=== PATIENT | female | born 1935 | race Caucasian/White ===

== ENCOUNTER → 2016-10-24 | Outpatient (CLI) | payer OTHER, BC ==
[~2016-10-24] MED LIST: ACET1TAB84 PO; ALBUAER2 INH; ALL100 PO; ALLO100T PO; AMLO5TAB2 PO; ASCO10003 PO; ATEN50TA8 PO; ATOR-24 PO; ATV/1 PO; BUDE1SUS8 NAE; BUDESUS; CHOL100027 PO; DENO60SO SQ; DOCU-94 PO; ESTCR PV; FEXO1TAB49 PO; FLUO0.05 TOP; FLUO5CRE TOP; FRS/40 PO; GABA-113 PO; HYDR-5688 PO; HYDR25SU20 PR; JUICE PLUS PO; LDXCR30 TOP; NF656 TD; NTRGSL/4 UT; OXYC-643 PO; POLY1POW PO; POLY335019 PO; SENN1TAB80 PO; SENNTAB23; TRAM-10 PO; TRIA0.1C20 TOP; TRMCR130WC TOP; VENL75CA73 PO; VNTHFA/IN INH; ZNTT/150 PO
--- NOTE | 2016-10-27 15:15 | MAMMOGRAPHY REPORT ---
BILATERAL DIGITAL SCREENING MAMMOGRAM WITH CAD: 10/24/2016 CLINICAL HISTORY: Routine screening. Patient has no complaints. TECHNIQUE: Current study was also evaluated with a Computer Aided Detection (CAD) system. Bilatera l CC and MLO views were obtained. COMPARISON: Comparison is made to exams dated: 10/22/2015 mammogram, 10/19/2013 mammogram, 10/20/2014 m ammogram, 10/18/2012 mammogram, 10/16/2011 mammogram, and 10/01/2010 mammogram - [facility] nter. BREAST COMPOSITION: The tissue of both breasts is almost entirely fatty. FINDINGS: There is an oval partially circumscribed and partially obscured 16 mm mass seen within th e left lateral breast at approximately 3:00 posteriorly, for which spot compression tomosynthesis vi ews and possible breast ultrasound are recommended for further evaluation. Additionally, there is a small 4 mm nodular asymmetry seen within the right lateral anterior breast on the cc view, for whic h spot compression tomosynthesis views and possible breast ultrasound is recommended for further hazel luation. The remainder of both breasts are stable compared to prior exams, without suspicious masses, calcifi cations, or areas of architectural distortion noted. Bilateral benign calcifications are not signif icantly changed. IMPRESSION: ACR BI-RADS CATEGORY 0: INCOMPLETE EVALUATION: NEED ADDITIONAL IMAGING EVALUATION Left breast mass and right breast asymmetry, for which additional imaging evaluation is recommended. The patient will be called to schedule an appointment. Approximately 10% of breast cancers are not detected with mammography. A negative mammographic repor t should not delay biopsy if a clinically suggestive mass is present. Julienne Jennings M.D. ah/:10/25/2016 12:25:47 Press Operator [employer]: Imelda CASTELLANOS(Frankie)(M), [facility] letter sent: Addl Imaging 0 BI-RADS Code: ACR BI-RADS Category 0: Incomplete Evaluation: Need Additional Imaging Evaluation
== END | disposition home or self-care (01) ==
LOC: C.MAMM 12:58
PROVIDERS: ATTEND Obstetrics & Gynecology
DX: Z12.31 Encounter for screening mammogram for malignant neoplasm of breast (principal); N63 Unspecified lump in breast; N64.89 Other specified disorders of breast

== ENCOUNTER → 2016-11-05 | Outpatient (CLI) | payer OTHER, BC ==
--- NOTE | 2016-11-05 17:10 | MAMMOGRAPHY REPORT ---
BILATERAL DIGITAL DIAGNOSTIC MAMMOGRAM TOMOSYNTHESIS AND TARGETED RIGHT ULTRASOUND: 11/05/2016 CLINICAL HISTORY: 81-year-old woman called back from screening mammography for a newly visualized ma ss in the far posterior, slightly lateral left breast and for a nodular asymmetry in the lateral ant erior right breast. TECHNIQUE: Spot compression to do digital and tomosynthesis images of each breast were obtained. F ull field left CC and MLO 2-D views were also obtained after placement of circular mole markers on t he inferior breast. COMPARISON: Comparison is made to exams dated: 10/24/2016 mammogram, 10/22/2015 mammogram, 10/20/2014 mammogram, 10/19/2013 mammogram, 10/18/2012 mammogram, and 10/16/2011 mammogram - [facility] nter. BREAST COMPOSITION: There are scattered areas of fibroglandular density in both breasts. FINDINGS: There is a 2.1 mm rounded circumscribed mass in the lateral anterior right breast on the CC view, which may correlate with the asymmetry seen on screening mammography. There are benign violeta earing calcifications scattered in the right breast. No suspicious spiculated or irregular mass, ar chitectural distortion or suspicious calcification or further evaluation with ultrasound was perform ed. On visual inspection of the inferior left breast there are 2 skin moles. These were marked with cir cular mole markers and repeat left CC and MLO views were performed. One of the mole marker aligns w ith the mammographic mass in question, confirming dermal origin and benignity. Targeted ultrasound was performed in the lateral right breast. In the 8:00 axis, 3 cm from the nipp le, there is an oval thin elongated nearly anechoic mass measuring 2.4 x 2.8 mm, which could represe nt focal duct ectasia or a small cyst. No other suspicious solid or cystic mass is identified. IMPRESSION: ACR-BI-RADS CATEGORY 3: PROBABLY BENIGN, TARGETED ULTRASOUND ACR-BI-RADS CATEGORY 3: ND OBABLY BENIGN 1. The mass in the lower outer far posterior left breast correlates with a benign skin mole. No fu rther workup is needed at this time. 2. The nodular asymmetry in the lateral anterior right breast could possibly correlate with a small benign cyst or focal duct ectasia seen on ultrasound. However, given the small size mammographical ly and lack of definitive mammographicsonographic correlation, a short interval follow-up right jeffrey mogram including tomosynthesis images and possible repeat ultrasound is recommended to ensure stabil ity in 6 months. These results and recommendations were discussed with the patient at the time of the exam. Approximately 10% of breast cancers are not detected with mammography. A negative mammographic repor t should not delay biopsy if a clinically suggestive mass is present. Ying Gamez M.D. ay/:11/05/2016 14:39:45 Operations Manager Assistant: Imelda CASTELLANOS(R)(M), [facility] letter sent: Follow Up Recommended 3 BI-RADS Code: ACR-BI-RADS Category 3: Probably Benign Ultrasound BI-RADS: ACR-BI-RADS Category 3: P robably Benign
== END | disposition home or self-care (01) ==
LOC: C.MAMM 13:23
PROVIDERS: ATTEND Obstetrics & Gynecology
DX: R92.8 Other abnormal and inconclusive findings on diagnostic imaging of breast (principal); D22.9 Melanocytic nevi, unspecified

== ENCOUNTER 2017-01-09 10:45 | Emergency (ER) | payer OTHER, BC ==
[~2017-01-09] VITALS: Ht 154.9 cm; Wt 123.0 kg
[~2017-01-09 10:45] MED LIST changes: -ALLO100T PO; -ASCO10003 PO; -BUDE1SUS8 NAE; -CHOL100027 PO; -DOCU-94 PO; -GABA-113 PO; -HYDR-5688 PO; -JUICE PLUS PO; -LDXCR30 TOP; -NF656 TD; -OXYC-643 PO; -POLY335019 PO; -SENN1TAB80 PO; +SENN8.6T13 PO; -TRMCR130WC TOP; -VNTHFA/IN INH
[2017-01-09 10:47] VITALS: TEMP 36.8; Ht 154.9 cm; Wt 123.0 kg
[2017-01-09] MEDS ORDERED: ASCO10003 PO (11:12)
[2017-01-09] MEDS ORDERED: CHOL100027 PO (11:12)
[2017-01-09] MEDS ORDERED: JUICE PLUS PO (11:12)
[2017-01-09] MEDS ORDERED: LDXCR30 TOP (11:19)
[2017-01-09] MEDS ORDERED: ALLO100T PO (11:19)
[2017-01-09] MEDS ORDERED: TRMCR130WC TOP (11:19)
[2017-01-09] MEDS ORDERED: ESTCR PV (11:19)
[2017-01-09] MEDS ORDERED: BUDE1SUS8 NAE (11:19)
[2017-01-09] MEDS ORDERED: VNTHFA/IN INH (11:19)
[2017-01-09] MEDS ORDERED: OXYCODONE HCL IR 5 MG TAB (IMMEDIATE RELEASE) PO STA (11:27)
--- NOTE | 2017-01-09 11:59 | DIAGNOSTIC IMAGING REPORT ---
LUMBAR SPINE CT CT DOSE: HISTORY: Pain Low back pain, no trauma TECHNIQUE: Multiaxial CT images of the lumbar spine were performed and reformatted in the sagittal and coronal plane without the use of contrast. COMPARISON: None. FINDINGS: Significant degenerative disc change throughout the entire lumbar region. Vacuum disc are noted throughout. Minimal grade 1 anterolisthesis of L4 and L5 with a maximum anterolisthesis of 4 mm. Vertebral body stature is normal. Mild disc bulges at all levels. Probable multifactorial moderate narrowing of spinal canal at L2-L3. Mild disc bulge L3-L4. Moderate multifactorial to significant multifactorial narrowing of the spinal canal at L4-L5. Mild disc bulge L5-S1. Degenerative changes of posterior elements throughout. IMPRESSION: 1. Significant degenerative disc disease throughout the entire lumbar region. 2. Vacuum discs at virtually all levels. 3. Grade 1 anterolisthesis of L4 on L5. 4. Significant multifactorial narrowing of the spinal canal at L4-L5, with less prominent findings seen at all additional levels. Electronically signed by: Jules Bass M.D. 01/09/2017 11:57 AM Dictated Date/Time: 01/09/2017 11:55 AM
--- NOTE | 2017-01-09 12:05 | DIAGNOSTIC IMAGING REPORT ---
PELVIS CT CT DOSE: 3994.50 mGy.cm HISTORY: Pelvic pain, no trauma TECHNIQUE: Multiaxial CT images of the pelvis were performed and reformatted in the sagittal and coronal plane without the use of contrast. COMPARISON: Abdomen and pelvis CT 08/24/2015. FINDINGS: No fracture or dislocation within the pelvis or hips. The sacrum is intact. Mild to moderate osteoarthritis within the bilateral hips and bilateral sacroiliac joints. Hysterectomy. The bladder is unremarkable. No pelvic free fluid. No pelvic hematoma. No hip effusions. IMPRESSION: 1. No fracture or dislocation within the pelvis or hips. 2. Mild osteoarthritis within the bilateral hips and sacroiliac joints. Electronically signed by: Tristan Orozco M.D. 01/09/2017 12:03 PM Dictated Date/Time: 01/09/2017 11:59 AM
[2017-01-09 12:23] LABS: BASO % 0.2 %; BASO ABS # 0.02 K/uL (0-0.2); COMPLETE YES; EOS % 2.9 %; HEMATOCRIT 38.7 % (37-47); IG% 0.5 %; LYMPH % 10.6 %; LYMPH ABS # 1.18 K/uL (1.2-3.4); MEAN CELL VOLUME 83.4 fL (80-100); MEAN CORPUSCULAR HGB CONC 33.6 g/dl (32-36); MONO % 6.5 %; NEUT % 79.3 %; PLATELET COUNT 386 K/uL (130-400); RED BLOOD COUNT 4.64 M/uL (4.2-5.4); WHITE BLOOD COUNT 11.15 K/uL (4.8-10.8)
[2017-01-09 12:40] LABS: BUN/CREATININE RATIO 18.1 (10-20); CALCIUM 9.8 mg/dl (8.5-10.1); CREATININE 1.5 mg/dl (0.60-1.20); POTASSIUM 4.1 mmol/L (3.5-5.1)
[2017-01-09 12:42] LABS: ALB/GLOB RATIO 0.9 (0.9-2)
[2017-01-09 12:49] LABS: URINE APPEARANCE CLEAR (CLEAR); URINE BILIRUBIN NEG (NEG); URINE COLOR YELLOW; URINE NITRITE NEG (NEG); URINE PH 6.5 (4.5-7.5); UROBILINOGEN NEG (NEG); ZZUR CULT IF INDIC CLEAN CATCH NO
[2017-01-09 12:55] LABS: MANUAL MICROSCOPIC REQUIRED? NO; REVIEW REQ? NO
[2017-01-09 13:08] VITALS: BP 156/78; PULSE 66; O2SAT 96
--- NOTE | 2017-01-09 13:43 | EMERGENCY ROOM VISIT NOTE ---
ED Visit Note First contact with patient: 10:52 81-year-old female with right-sided back and hip pain was fully evaluated by Monico Ritchie PA-C. Please see his note. I also independently evaluated the patient.
[2017-01-09] MEDS ORDERED: HYDROCODONE/ACETAMOPHEN 5/325MG TAB PO STA (13:46)
[2017-01-09] MEDS ORDERED: DOCU-94 PO (13:49)
[2017-01-09] MEDS ORDERED: HYDR-5688 PO (13:49)
--- NOTE | 2017-01-09 13:53 | EMERGENCY ROOM VISIT NOTE ---
History First contact with patient: 10:52 Chief Complaint: BACK PAIN Stated Complaint: BACK PAIN History of Present Illness The patient is a 81 year old female who presents to the Emergency Room via private vehicle accompanied by female with complaints of "back pain". The patient states that she wears a back brace occasionally, but recently operated vacuum approximately 2 days ago without the brace. She states that even before vacuuming she had pain in the low back. She states that it is in the mid low back region in the buttocks region. She has also noted swelling in the legs, and notes that she has gained weight over the past month. She states that it has been poor since Thursday. She notes that she typically ambulates with a cane. There has been no incontinence. She has tried tramadol and Tylenol without relief. She does have a history of back pain. She has difficulty bending over secondary to pain. She has a history of stage III kidney disease, and retains fluid. There is been no abdominal pain, fever. She also feels slightly nauseous secondary to the pain. She lives alone. Review of Systems A complete 10-point Review of Systems was discussed with the patient, with pertinent positives and negatives listed in the History of Present Illness. All remaining Review of Systems questions can be considered negative unless otherwise specified. Past Medical/Surgical History Medical Problems: (1) CKD (chronic kidney disease), stage III (2) Depression (3) DJD (degenerative joint disease), lumbar (4) Dyslipidemia (5) GERD (gastroesophageal reflux disease) (6) Gout (7) Hyperlipidemia (8) Hyperplastic polyp of intestine (9) Hypertension (10) IBS (irritable bowel syndrome) (11) Obesity, morbid, BMI 50 or higher (12) Osteoarthritis (13) Osteoporosis (14) Vitamin D deficiency Surgical Problems: (1) H/O oophorectomy (2) H/o spinal injection (3) History of hysterectomy (4) S/P cataract surgery (5) S/P lumpectomy, left breast (6) S/P parathyroidectomy Family History FH: heart disease FHx: cancer Hypertension Kidney disease Kidney stones Social History Smoking Status: Never Smoker Alcohol Use: none Drug Use: none Housing Status: lives alone Current/Historical Medications Scheduled Albuterol Hfa (Ventolin Hfa), 2-4 PUFFS INH Q6H Allopurinol (Zyloprim), 200 MG PO QAM Amlodipine Besylate (Norvasc), 5 MG PO QPM Ascorbic Acid (Vitamin C), 1 TAB PO DAILY Atenolol (Tenormin), 50 MG PO QAM Cholecalciferol (Vitamin D 1000 Unit), 1,000 INTER.UNIT PO DAILY Denosumab (Prolia), 60 MG SQ [id number] Docusate Sodium (Colace), 1 CAP PO BID Estradiol Vaginal (Estrace), 1 GM PV QAM Fexofenadine Hcl (Devora Allergy), 180 MG PO QAM Furosemide (Lasix), 40 MG PO DAILY Nitroglycerin (Nitrostat), 0.4 MG UT PRN Ranitidine (Zantac), 150 MG PO BID Venlafaxine Hcl (Venlafaxine Extended Rel), 75 MG PO QAM [Juice Plus], 1 CAP PO DAILY Scheduled PRN Acetaminophen (Tylenol Arthritis Ext Rel), 1,300 MG PO Q8H PRN for Pain Budesonide (Nasal) (Rhinocort Allergy), 1 SPRAY CESAR QAM PRN for ALLERGIES Fluocinonide (Lidex 0.05% Cream), 1 APPLN TOP DAILY PRN for Affected Skin Folds Hydrocodone/Acetaminophen 5MG/325MG (Highland 5MG/325MG), 1-2 TABLET PO Q6 PRN for Pain Hydrocortisone Acetate (Rectal (Anusol-Hc), 25 MG WA BID PRN for Hemorrhoids Lorazepam (Ativan), 1 MG PO BID PRN for RN Sennosides (Senna Lax), 2 TABS PO HS PRN for PRN Tramadol (Ultram), 50 MG PO Q6H PRN for Pain Triamcinolone Acet (Aristocort 0.1%), 1 APPLN TOP BID PRN for Affected Skin Folds Allergies Coded Allergies: Clarithromycin (Verified Allergy, Unknown, HIVES, 01/09/17) Dust Mite Extract (Verified Allergy, Unknown, SOB,SNEEZING, 01/09/17) NSAIDs (Verified Allergy, Unknown, NOT TO TAKE DUE TO KIDNEY FUNCTION, ) Penicillins (Verified Allergy, Unknown, HIVES, 01/09/17) Physical Exam Vital Signs Date Time Temp Pulse Resp B/P (MAP) Pulse Ox O2 Delivery O2 Flow Rate FiO2 01/09/17 13:08 66 18 156/78 96 Room Air 01/09/17 10:47 36.8 89 17 152/75 94 Room Air Physical Exam VITAL SIGNS - Vital signs and nursing notes were reviewed. Afebrile, hypertensive at 152/75, non-tachycardic and is saturating well on room air 94%. GENERAL -81-year-old female appearing her stated age who is in no acute distress. Communicates well with provider and answers questions appropriately. SKIN - Without rashes. No petechial rashes. The skin overlying the spine is unremarkable. HEAD - NC/AT. EYES - PERRL with EOMI bilaterally. Sclera anicteric. Palpebral conjunctiva pink and moist with no injection noted. EARS - No deformities of external structures noted on gross examination bilaterally. NOSE - Midline and without cyanosis. No epistaxis or purulent drainage noted. MOUTH/OROPHARYNX - Without perioral cyanosis. LUNGS - Chest wall symmetric without accessory muscle use, intercostals retractions, or central cyanosis. Normal vesicular breath sounds CTA B/L. No wheezes, rales, or rhonchi appreciated. CARDIAC - RRR with S1/S2. No murmur, rubs, or gallops appreciated. MUSCULOSKELETAL: There is tenderness to palpation overlying the inferior spinous processes as well as the pelvis posterior region. ABDOMEN - Abdominal contour without pulsations or visible masses. BS normoactive all four quadrants. No tenderness, palpable masses, hepatosplenomegaly, or ascites noted. EXTREMITIES - there is bilateral pedal edema. She is neurovascularly intact in the extremity. Medical Decision & Procedures ER Provider Diagnostic Interpretation: LUMBAR SPINE CT CT DOSE: HISTORY: Pain Low back pain, no trauma TECHNIQUE: Multiaxial CT images of the lumbar spine were performed and reformatted in the sagittal and coronal plane without the use of contrast. COMPARISON: None. FINDINGS: Significant degenerative disc change throughout the entire lumbar region. Vacuum disc are noted throughout. Minimal grade 1 anterolisthesis of L4 and L5 with a maximum anterolisthesis of 4 mm. Vertebral body stature is normal. Mild disc bulges at all levels. Probable multifactorial moderate narrowing of spinal canal at L2-L3. Mild disc bulge L3-L4. Moderate multifactorial to significant multifactorial narrowing of the spinal canal at L4-L5. Mild disc bulge L5-S1. Degenerative changes of posterior elements throughout. IMPRESSION: 1. Significant degenerative disc disease throughout the entire lumbar region. 2. Vacuum discs at virtually all levels. 3. Grade 1 anterolisthesis of L4 on L5. 4. Significant multifactorial narrowing of the spinal canal at L4-L5, with less prominent findings seen at all additional levels. Electronically signed by: Jules Bass M.D. 01/09/2017 11:57 AM Dictated Date/Time: 01/09/2017 11:[address] DOSE: 3994.50 mGy.cm HISTORY: Pelvic pain, no trauma TECHNIQUE: Multiaxial CT images of the pelvis were performed and reformatted in the sagittal and coronal plane without the use of contrast. COMPARISON: Abdomen and pelvis CT 08/24/2015. FINDINGS: No fracture or dislocation within the pelvis or hips. The sacrum is intact. Mild to moderate osteoarthritis within the bilateral hips and bilateral sacroiliac joints. Hysterectomy. The bladder is unremarkable. No pelvic free fluid. No pelvic hematoma. No hip effusions. IMPRESSION: 1. No fracture or dislocation within the pelvis or hips. 2. Mild osteoarthritis within the bilateral hips and sacroiliac joints. Electronically signed by: Tristan Orozco M.D. 01/09/2017 12:03 PM Dictated Date/Time: 01/09/2017 11:59 AM Laboratory Results 01/09/17 12:00 Red Blood Count 4.64, Mean Corpuscular Volume 83.4, Mean Corpuscular Hemoglobin 28.0, Mean Corpuscular Hemoglobin Concent 33.6, Mean Platelet Volume 11.0, Neutrophils (%) (Auto) 79.3, Lymphocytes (%) (Auto) 10.6, Monocytes (%) (Auto) 6.5, Eosinophils (%) (Auto) 2.9, Basophils (%) (Auto) 0.2, Neutrophils # (Auto) 8.85, Lymphocytes # (Auto) 1.18, Monocytes # (Auto) 0.72, Eosinophils # (Auto) 0.32, Basophils # (Auto) 0.02 01/09/17 12:00 Test 01/09/17 12:00 01/09/17 12:35 White Blood Count 11.15 K/uL (4.8-10.8) Red Blood Count 4.64 M/uL (4.2-5.4) Hemoglobin 13.0 g/dL (12.0-16.0) Hematocrit 38.7 % (37-47) Mean Corpuscular Volume 83.4 fL (80-100) Mean Corpuscular Hemoglobin 28.0 pg (25-34) Mean Corpuscular Hemoglobin Concent 33.6 g/dl (32-36) Platelet Count 386 K/uL (130-400) Mean Platelet Volume 11.0 fL (7.4-10.4) Neutrophils (%) (Auto) 79.3 % Lymphocytes (%) (Auto) 10.6 % Monocytes (%) (Auto) 6.5 % Eosinophils (%) (Auto) 2.9 % Basophils (%) (Auto) 0.2 % Neutrophils # (Auto) 8.85 K/uL (1.4-6.5) Lymphocytes # (Auto) 1.18 K/uL (1.2-3.4) Monocytes # (Auto) 0.72 K/uL (0.11-0.59) Eosinophils # (Auto) 0.32 K/uL (0-0.5) Basophils # (Auto) 0.02 K/uL (0-0.2) RDW Standard Deviation 51.8 fL (36.4-46.3) RDW Coefficient of Variation 17.5 % (11.5-14.5) Immature Granulocyte % (Auto) 0.5 % Immature Granulocyte # (Auto) 0.06 K/uL (0.00-0.02) Anion Gap 9.0 mmol/L (3-11) Est Creatinine Clear Calc Drug Dose 37.4 ml/min Estimated GFR () 38.0 Estimated GFR (Non- 32.8 BUN/Creatinine Ratio 18.1 (10-20) Calcium Level 9.8 mg/dl (8.5-10.1) Total Bilirubin 0.6 mg/dl (0.2-1) Aspartate Amino Transf (AST/SGOT) 19 U/L (15-37) Alanine Aminotransferase (ALT/SGPT) 20 U/L (12-78) Alkaline Phosphatase 84 U/L (45-117) Total Protein 7.4 gm/dl (6.4-8.2) Albumin 3.5 gm/dl (3.4-5.0) Globulin 3.9 gm/dl (2.5-4.0) Albumin/Globulin Ratio 0.9 (0.9-2) Urine Color YELLOW Urine Appearance CLEAR (CLEAR) Urine pH 6.5 (4.5-7.5) Urine Specific [place] 1.010 (1.000-1.030) Urine Protein NEG (NEG) Urine Glucose (UA) NEG (NEG) Urine Ketones NEG (NEG) Urine Occult Blood NEG (NEG) Urine Nitrite NEG (NEG) Urine Bilirubin NEG (NEG) Urine Urobilinogen NEG (NEG) Urine Leukocyte Esterase NEG (NEG) Medications Administered Medications (Trade) Dose Ordered Sig/Sergio Route Start Time Stop Time Status Last Admin Dose Admin Oxycodone HCl (Roxicodone Immediate Rel Tab) 5 mg NOW STAT PO 01/09/17 11:27 01/09/17 11:28 DC 01/09/17 11:46 5 MG Acetaminophen/ Hydrocodone Bitart (Highland 5/325 Tab) 1 tab NOW STAT PO 01/09/17 13:46 01/09/17 13:47 DC 01/09/17 13:57 1 TAB Medical Decision Patient was seen and evaluated as above. After obtaining a thorough history and physical examination IV access was initiated and the above workup was performed. Patient presents to us today with low back pain. She has also had a recent weight gain over the past month. Patient does have a history of chronic kidney disease, and is on what she describes as a water pill. I suspect that she may acute exacerbation of this, and unfortunately the patient this time in my opinion is likely experiencing low back pain secondary to the amount of weight that is supported on her spine and do not suspect any acute process. Blood work was obtained to help rule out emergent process. CBC revealed slight leukocytosis, no anemia noted. Creatinine and BUN are elevated which are similar to previous. She is to follow up regarding this. CT scans were negative for fracture. Severe degenerative changes noted. The patient was given OxyIR here for pain and one Highland tablet. She does feel stable for discharge. She'll be given a short term supply of the Highland. She was also seen and evaluated by my attending. She is to follow-up with her family doctor for further evaluation and management of her symptoms today. She was educated upon worrisome symptoms in which to return, had questions prior to discharge, and was discharged home in good condition. In evaluation treatment of this patient following differential diagnoses were entertained: Pyelonephritis, sepsis, acute exacerbation of chronic low back pain , CHF exacerbation, morbid obesity, among others. Impression Primary Impression: Back pain Departure Information Dispostion Home / Self-Care Condition GOOD Prescriptions Docusate Sodium (COLACE) 100 Mg Cap 1 CAP PO BID for 7 Days, #14 CAP Prov: Monico Ritchie PA-C 01/09/17 Hydrocodone/Acetaminophen 5MG/325MG (Highland 5MG/325MG) Tab 1-2 TABLET PO Q6 Y for Pain, #21 TAB For Initial Treatment Prov: Monico Ritchie PA-C 01/09/17 Referrals Ervin Steel D.O. (PCP) Patient Instructions My [facility] Additional Instructions You have been treated in the Emergency Department for Back Pain. You have received pain medicine in the emergency department which impairs your ability to operate a vehicle. It is illegal for you to drive after receiving these medicines. You have been prescribed NORCO to be used for pain control. This is a narcotic medication. You cannot drive or consume alcohol while on this medicine. This medicine should only be used for pain that cannot be controlled with over-the- counter pain medicines. For pain control, you can use the following [id number] medicines (if >12 yo): - Regular strength (325mg/tab) Tylenol (acetaminophen) 2 tabs every 4-6 hours as needed. Do not exceed 12 tablets in a 24 hour period. Avoid taking more than 3 grams (3000 mg) of Tylenol per day. This includes any other sources of acetaminophen you may take on a regular basis. Please do not take Highland with Tylenol. - Regular strength (200 mg/tab) Advil (ibuprofen) 1-2 tabs every 4-6 hours as needed. Do not exceed a dose of 3200 mg per day. If this is an acute injury, ice can be applied to the area of pain for the first 3 days to help decrease pain and inflammation. After the first 3 days, a heating pad can be used over the area for continued soothing relief. You should schedule a follow-up appointment in 2-3 days with your Primary Care Provider for further evaluation and treatment of your back pain. Please also follow-up regarding your kidney function. Return to the Emergency Department if your current symptoms worsen despite treatment course outlined above, or if you develop any of the following symptoms : intractable pain despite aforementioned treatment course, loss of control of your bowel or bladder, numbness or tingling in your groin, or development of a fever. Problem Qualifiers Primary Impression: Back pain Back pain location: low back pain
[2017-02-09] MEDS ORDERED: GABA-113 PO (10:31)
[2017-02-09] MEDS ORDERED: DOCU-94 PO (10:31)
[2017-02-09] MEDS ORDERED: POLY335019 PO (10:31)
== END 2017-01-09 14:07 | disposition home or self-care (01) ==
LOC: C.EDB 10:46 → C.EDD 14:07
DX: M54.9 Dorsalgia, unspecified (principal); N18.3 Chronic kidney disease, stage 3 (moderate); M47.16 Other spondylosis with myelopathy, lumbar region; E78.5 Hyperlipidemia, unspecified; K21.9 Gastro-esophageal reflux disease without esophagitis; M10.9 Gout, unspecified; I10 Essential (primary) hypertension; K58.9 Irritable bowel syndrome, unspecified; E66.01 Morbid (severe) obesity due to excess calories; M19.90 Unspecified osteoarthritis, unspecified site; E55.9 Vitamin D deficiency, unspecified; Z82.49 Family history of ischemic heart disease and other diseases of the circulatory system

== ENCOUNTER 2017-01-12 14:19 | Emergency (ER) | payer OTHER, BC ==
[~2017-01-12 14:19] MED LIST changes: -ALBUAER2 INH; -ALL100 PO; +ALLO100T PO; +ASCO10003 PO; -ATOR-24 PO; +BUDE1SUS8 NAE; -BUDESUS; +CHOL100027 PO; +DOCU-94 PO; -FLUO0.05 TOP; -FLUO5CRE TOP; +HYDR-5688 PO; +JUICE PLUS PO; +LDXCR30 TOP; -POLY1POW PO; -SENNTAB23; -TRIA0.1C20 TOP; +TRMCR130WC TOP; +VNTHFA/IN INH
[2017-01-12 14:42] VITALS: Ht 152.4 cm
[2017-01-12] MEDS ORDERED: LIDODERM (LIDOCAINE) PATCH 5% TD STA (16:19)
[2017-01-12] MEDS ORDERED: ACETAMINOPHEN 325 MG TAB PO STA (16:19)
--- NOTE | 2017-01-12 16:28 | EMERGENCY ROOM VISIT NOTE ---
History Report prepared by Brandon: Deborah Butcher Under the Supervision of: Essence ParkO. First contact with patient: 16:01 Chief Complaint: BACK PAIN Stated Complaint: BACK PAIN History of Present Illness The patient is a 81 year old female who presents to the Emergency Room with complaints of worsening back pain for the past week and a half. The patient has had chronic back pain for the past two years after a fall. For the past week and a half her chronic back pain has gotten much worse. Her pain is located in her mid back and radiates down into her buttocks. She rates her pain as a 10/10 in severity. Walking exacerbates her pain. The patient states that her legs feel swollen and she feels generally "puffy" all over. She notes burning with urination. She has a history of UTIs and states that these symptoms feels similar to her previous UTIs. She also reports chills, diaphoresis, and cough. She has been constipated, but obtained some relief with laxatives. The patient denies fevers and shortness of breath. She was in the ED three days ago for her pain. She had a CT scan of her back at that time. She was discharged with [place] and Colace and told to follow-up with her PCP in 2-3 days. The patient states that the [place] is no longer helping. Source of History: patient Onset: a week and a half Position: back Symptom Intensity: 10/10 Quality: other (radiating) Timing: worsening Modifying Factors (Worsening): other (walking) Associated Symptoms: + chills, + diaphoresis, + cough, + urinary symptoms, No fevers, No SOB Note: The patient states that her legs feel swollen and she feels generally "puffy" all over. Review of Systems See HPI for pertinent positives & negatives. A total of 10 systems reviewed and were otherwise negative. Past Medical & Surgical Medical Problems: (1) CKD (chronic kidney disease), stage III (2) Depression (3) DJD (degenerative joint disease), lumbar (4) Dyslipidemia (5) GERD (gastroesophageal reflux disease) (6) Gout (7) Hyperlipidemia (8) Hyperplastic polyp of intestine (9) Hypertension (10) IBS (irritable bowel syndrome) (11) Obesity, morbid, BMI 50 or higher (12) Osteoarthritis (13) Osteoporosis (14) Vitamin D deficiency Surgical Problems: (1) H/O oophorectomy (2) H/o spinal injection (3) History of hysterectomy (4) S/P cataract surgery (5) S/P lumpectomy, left breast (6) S/P parathyroidectomy Family History FH: heart disease FHx: cancer Hypertension Kidney disease Kidney stones Social History Smoking Status: Never Smoker Smokeless Tobacco Use: No Alcohol Use: none Drug Use: none Housing Status: lives alone Occupation Status: unemployed Current/Historical Medications Scheduled Albuterol Hfa (Ventolin Hfa), 2-4 PUFFS INH Q6H Allopurinol (Zyloprim), 200 MG PO QAM Amlodipine Besylate (Norvasc), 5 MG PO QPM Ascorbic Acid (Vitamin C), 1 TAB PO DAILY Atenolol (Tenormin), 50 MG PO QAM Cholecalciferol (Vitamin D 1000 Unit), 1,000 INTER.UNIT PO DAILY Denosumab (Prolia), 60 MG SQ [id number] Docusate Sodium (Colace), 1 CAP PO BID Estradiol Vaginal (Estrace), 1 GM PV QAM Fexofenadine Hcl (Devora Allergy), 180 MG PO QAM Furosemide (Lasix), 40 MG PO DAILY Lidocaine (Lidoderm Patch 5%), 1 PATCH TD DAILY Nitroglycerin (Nitrostat), 0.4 MG UT PRN Oxycodone/Acetaminophen 5MG/325MG (Oxycodone/Acetaminophen 5MG/325MG), 1 TABLET PO Q8 Ranitidine (Zantac), 150 MG PO BID Venlafaxine Hcl (Venlafaxine Extended Rel), 75 MG PO QAM [Juice Plus], 1 CAP PO DAILY Scheduled PRN Acetaminophen (Tylenol Arthritis Ext Rel), 1,300 MG PO Q8H PRN for Pain Budesonide (Nasal) (Rhinocort Allergy), 1 SPRAY CESAR QAM PRN for ALLERGIES Fluocinonide (Lidex 0.05% Cream), 1 APPLN TOP DAILY PRN for Affected Skin Folds Hydrocodone/Acetaminophen 5MG/325MG ([place] 5MG/325MG), 1-2 TABLET PO Q6 PRN for Pain Hydrocortisone Acetate (Rectal (Anusol-Hc), 25 MG HI BID PRN for Hemorrhoids Lorazepam (Ativan), 1 MG PO BID PRN for RN Sennosides (Senna Lax), 2 TABS PO HS PRN for PRN Tramadol (Ultram), 50 MG PO Q6H PRN for Pain Triamcinolone Acet (Aristocort 0.1%), 1 APPLN TOP BID PRN for Affected Skin Folds Allergies Coded Allergies: Clarithromycin (Verified Allergy, Unknown, HIVES, 01/12/17) Dust Mite Extract (Verified Allergy, Unknown, SOB,SNEEZING, 01/12/17) NSAIDs (Verified Allergy, Unknown, NOT TO TAKE DUE TO KIDNEY FUNCTION, 01/12) Penicillins (Verified Allergy, Unknown, HIVES, 01/12/17) Physical Exam Vital Signs Date Time Temp Pulse Resp B/P (MAP) Pulse Ox O2 Delivery O2 Flow Rate FiO2 01/12/17 18:27 36.7 71 18 154/69 95 01/12/17 16:50 71 18 154/69 95 Room Air 01/12/17 14:42 36.7 78 20 215/92 94 Room Air Physical Exam GENERAL: alert, well appearing, morbidly obese, no distress, non-toxic EYE EXAM: normal conjunctiva, PERRL and EOM's grossly intact OROPHARYNX: no exudate, no erythema, lips, buccal mucosa, and tongue normal and mucous membranes are moist NECK: supple, no nuchal rigidity, no adenopathy, non-tender LUNGS: Clear to auscultation. Normal chest wall mechanics HEART: no murmurs, S1 normal and S2 normal ABDOMEN: abdomen soft, non-tender, normo-active bowel sounds, no masses, no rebound or guarding. BACK: Back is symmetrical on inspection and there is no deformity, no midline tenderness, no CVA tenderness. SKIN: no rashes and no bruising UPPER EXTREMITIES: upper extremities are grossly normal. LOWER EXTREMITIES: No pitting edema. Decreased ROM bilaterally secondary to pain. NEURO EXAM: Normal sensorium Medical Decision & Procedures Laboratory Results 01/12/17 16:40 Red Blood Count 4.61, Mean Corpuscular Volume 82.0, Mean Corpuscular Hemoglobin 27.3, Mean Corpuscular Hemoglobin Concent 33.3, Mean Platelet Volume 11.4, Neutrophils (%) (Auto) 75.4, Lymphocytes (%) (Auto) 13.5, Monocytes (%) (Auto) 9.1, Eosinophils (%) (Auto) 1.4, Basophils (%) (Auto) 0.2, Neutrophils # (Auto) 8.24, Lymphocytes # (Auto) 1.48, Monocytes # (Auto) 1.00, Eosinophils # (Auto) 0.15, Basophils # (Auto) 0.02 01/12/17 16:40 Test 01/12/17 16:40 01/12/17 17:00 White Blood Count 10.93 K/uL (4.8-10.8) Red Blood Count 4.61 M/uL (4.2-5.4) Hemoglobin 12.6 g/dL (12.0-16.0) Hematocrit 37.8 % (37-47) Mean Corpuscular Volume 82.0 fL (80-100) Mean Corpuscular Hemoglobin 27.3 pg (25-34) Mean Corpuscular Hemoglobin Concent 33.3 g/dl (32-36) Platelet Count 411 K/uL (130-400) Mean Platelet Volume 11.4 fL (7.4-10.4) Neutrophils (%) (Auto) 75.4 % Lymphocytes (%) (Auto) 13.5 % Monocytes (%) (Auto) 9.1 % Eosinophils (%) (Auto) 1.4 % Basophils (%) (Auto) 0.2 % Neutrophils # (Auto) 8.24 K/uL (1.4-6.5) Lymphocytes # (Auto) 1.48 K/uL (1.2-3.4) Monocytes # (Auto) 1.00 K/uL (0.11-0.59) Eosinophils # (Auto) 0.15 K/uL (0-0.5) Basophils # (Auto) 0.02 K/uL (0-0.2) RDW Standard Deviation 49.7 fL (36.4-46.3) RDW Coefficient of Variation 16.9 % (11.5-14.5) Immature Granulocyte % (Auto) 0.4 % Immature Granulocyte # (Auto) 0.04 K/uL (0.00-0.02) Anion Gap 7.0 mmol/L (3-11) Estimated GFR () 45.2 Estimated GFR (Non- 39.0 BUN/Creatinine Ratio 11.7 (10-20) Calcium Level 9.1 mg/dl (8.5-10.1) Total Bilirubin 0.5 mg/dl (0.2-1) Aspartate Amino Transf (AST/SGOT) 23 U/L (15-37) Alanine Aminotransferase (ALT/SGPT) 20 U/L (12-78) Alkaline Phosphatase 87 U/L (45-117) Total Protein 7.1 gm/dl (6.4-8.2) Albumin 3.5 gm/dl (3.4-5.0) Globulin 3.6 gm/dl (2.5-4.0) Albumin/Globulin Ratio 1.0 (0.9-2) Chemistry Specimen Hemolysis Urine Color YELLOW Urine Appearance CLEAR (CLEAR) Urine pH 7.0 (4.5-7.5) Urine Specific [place] 1.011 (1.000-1.030) Urine Protein NEG (NEG) Urine Glucose (UA) NEG (NEG) Urine Ketones NEG (NEG) Urine Occult Blood NEG (NEG) Urine Nitrite NEG (NEG) Urine Bilirubin NEG (NEG) Urine Urobilinogen NEG (NEG) Urine Leukocyte Esterase NEG (NEG) Laboratory results per my review. Medications Administered Medications (Trade) Dose Ordered Sig/Sergio Route Start Time Stop Time Status Last Admin Dose Admin Lidocaine (Lidoderm Patch 5%) 1 patch NOW STAT TD 01/12/17 16:19 01/12/17 16:20 DC 01/12/17 16:32 1 PATCH Acetaminophen (Tylenol Tab) 650 mg NOW STAT PO 01/12/17 16:19 01/12/17 16:20 DC 01/12/17 16:32 650 MG Oxycodone/ Acetaminophen (Percocet 5-325mg Tab) 1 tab NOW STAT PO 01/12/17 17:52 01/12/17 17:53 DC 01/12/17 18:20 1 TAB ED Course 1601: The patient was evaluated in room C12B. A complete history and physical exam was performed. 1619: Acetaminophen 650 mg PO, Lidocaine 1 patch TD 1749: I reassessed the patient at this time. She is feeling better and was able to ambulate to the bathroom. I discussed the results and treatment plan with the patient. I answered all pertaining questions that she had. She expressed understanding and verbalized agreement. The patient will be discharged home. 1752: Percocet 5-325 mg 1 tab PO Medical Decision Differential diagnoses includes but is not limited to lumbar radiculopathy, muscle strain, facture, cauda equina, mass, and disc herniation. Medication Reconciliation: I attest that I have personally reviewed the patient' s current medication list. Blood pressure screening: Patient was found to have an elevated blood pressure and was referred to their primary doctor for recheck and further treatment. Review of EMR shows similar presentations over the last 2 years, MRI of her L spine last year for similar sx. Pt has previously been referred to a note specialist and pain mgmt. She reports she was "unhappy with and didn't get along with them". I encouraged her to pursue another specialist then given the extensive degenerative disease. Pt reported feeling improved after lidoderm patch and percocet. No sx to suggest cauda equina. CT 3 days ago shows extensive disease. No acute changes. Pt unhappy with pain relief from Norca and concerned about constipation. Discussed with her tx/prevention for constipation. Discussed medication side effects. Discussed concerning symptoms. Encourage close f/u with PCP. Discussed contribution of weight to her pain. No evidence or pathology. Pt reports intermittent burning but also states she has that with dryness she has experienced since becoming post menopausal. Pt verbalized understanding of bedside discussion, sx to watch/ return for, she verbalized understanding and was agreeable with plan. Impression Primary Impression: Acute exacerbation of chronic low back pain Additional Impression: Obesity, morbid, BMI 50 or higher Scribe Attestation The scribe's documentation has been prepared under my direction and personally reviewed by me in its entirety. I confirm that the note above accurately reflects all work, treatment, procedures, and medical decision making performed by me. Departure Information Dispostion Home / Self-Care Prescriptions Oxycodone/Acetaminophen 5MG/325MG (OXYCODONE/ACETAMINOPHEN 5MG/325MG) 1 Tab Tab 1 TABLET PO Q8 for Pain, #14 TAB Prov: Chandni Nuñez, DO 01/12/17 Lidocaine (Lidoderm Patch 5%) 1 Ea Tdsy 1 PATCH TD DAILY for Pain, #1 BOX Prov: Chandni Nuñez, DO 01/12/17 Referrals No Doctor, Assigned (PCP) Forms HOME CARE DOCUMENTATION FORM, IMPORTANT VISIT INFORMATION Patient Instructions My [facility] Additional Instructions Please call and follow up with your family doctor and consider follow-up with pain management or a Back Specialist also. Please avoid any heavy lifting or strenuous activity. Please monitor for constipation while you're using the stronger pain medication. Do not take the stronger pain medication and drive. You may apply the patch daily as needed also. Please avoid any anti- inflammatories due to your mild kidney dysfunction. Do not take both the hydrocodone and oxycodone at the same time. If you feel the oxycodone looks works better you may use that instead. Problem Qualifiers
[2017-01-12 17:02] LABS: BASO % 0.2 %; BASO ABS # 0.02 K/uL (0-0.2); COMPLETE YES; EOS % 1.4 %; HEMATOCRIT 37.8 % (37-47); IG% 0.4 %; LYMPH % 13.5 %; LYMPH ABS # 1.48 K/uL (1.2-3.4); MEAN CORPUSCULAR HEMOGLOBIN 27.3 pg (25-34); MEAN CORPUSCULAR HGB CONC 33.3 g/dl (32-36); MEAN PLATELET VOLUME 11.4 fL (7.4-10.4); MONO % 9.1 %; NEUT % 75.4 %; PLATELET COUNT 411 K/uL (130-400); RED BLOOD COUNT 4.61 M/uL (4.2-5.4); WHITE BLOOD COUNT 10.93 K/uL (4.8-10.8)
[2017-01-12 17:36] LABS: URINE APPEARANCE CLEAR (CLEAR); URINE BILIRUBIN NEG (NEG); URINE COLOR YELLOW; URINE NITRITE NEG (NEG); URINE SPECIFIC GRAVITY 1.011 (1.000-1.030); UROBILINOGEN NEG (NEG); ZZUR CULT IF INDIC CLEAN CATCH NO
[2017-01-12 17:39] LABS: MANUAL MICROSCOPIC REQUIRED? NO; REVIEW REQ? NO
[2017-01-12] MEDS ORDERED: OXYCODONE/ACETAMINOPHEN 5-325 TAB PO STA (17:52)
[2017-01-12 17:58] LABS: ALKALINE PHOSPHATASE 87 U/L (45-117); ALT/SGPT 20 U/L (12-78); AST/SGOT 23 U/L (15-37); BLOOD UREA NITROGEN 15 mg/dl (7-18); BUN/CREATININE RATIO 11.7 (10-20); CALCIUM 9.1 mg/dl (8.5-10.1); CARBON DIOXIDE 28 mmol/L (21-32); CHLORIDE 105 mmol/L (98-107); GLUCOSE 98 mg/dl (70-99); POTASSIUM 3.8 mmol/L (3.5-5.1); SODIUM 140 mmol/L (136-145)
[2017-01-12] MEDS ORDERED: OXYC-643 PO (17:59)
[2017-01-12] MEDS ORDERED: NF656 TD (17:59)
[2017-01-12 18:27] VITALS: BP 154/69; PULSE 71; TEMP 36.7; O2SAT 95
[2017-02-09] MEDS ORDERED: POLY335019 PO (10:31)
[2017-02-09] MEDS ORDERED: GABA-113 PO (10:31)
[2017-02-09] MEDS ORDERED: DOCU-94 PO (10:31)
== END 2017-01-12 18:29 | disposition home or self-care (01) ==
LOC: C.EDB 14:20 → C.EDC 18:29
DX: G89.29 Other chronic pain (principal); M54.6 Pain in thoracic spine; I12.9 Hypertensive chronic kidney disease with stage 1 through stage 4 chronic kidney disease, or unspecified chronic kidney disease; N18.3 Chronic kidney disease, stage 3 (moderate); M47.816 Spondylosis without myelopathy or radiculopathy, lumbar region; M10.9 Gout, unspecified; F32.9 Major depressive disorder, single episode, unspecified; K21.9 Gastro-esophageal reflux disease without esophagitis; M81.0 Age-related osteoporosis without current pathological fracture; E89.2 Postprocedural hypoparathyroidism; E55.9 Vitamin D deficiency, unspecified; Z87.440 Personal history of urinary (tract) infections; Z90.721 Acquired absence of ovaries, unilateral; Z98.890 Other specified postprocedural states; Z90.710 Acquired absence of both cervix and uterus; Z98.49 Cataract extraction status, unspecified eye; Z82.49 Family history of ischemic heart disease and other diseases of the circulatory system; Z84.1 Family history of disorders of kidney and ureter; Z79.899 Other long term (current) drug therapy

== ENCOUNTER → 2017-01-20 | Outpatient (CLI) | payer OTHER, BC ==
[~2017-01-20] MED LIST changes: +GABA-113 PO; +NF656 TD; +OXYC-643 PO; +POLY335019 PO
--- NOTE | 2017-01-20 16:28 | DIAGNOSTIC IMAGING REPORT ---
MRI OF THE LUMBAR SPINE WITHOUT CONTRAST CLINICAL HISTORY: ACUTE BILATERAL LOW BACK PAIN WITH BILATERAL SCIATICA COMPARISON STUDY: Lumbar spine MRI September 21, [address] January 09, 2017. TECHNIQUE: Utilizing a 1.5 Pat magnet and dedicated coil, multiplanar, multiecho imaging of the lumbar spine was performed without IV contrast. FINDINGS: For purposes of numbering on this exam, the L5-S1 disc space is assigned to axial image 23 of 25. 3 mm anterolisthesis of L4 and L5 is unchanged since CT of January 09, 2017. There is no intracanalicular mass or fluid collection. Conus terminates at the mid L2 level. Paravertebral soft tissues are unremarkable. Note is made of a T1 and T2 hyperintense lesion within T11 consistent with a hemangioma. There is marrow edema along the posterior aspect of the inferior endplate of L4. L1-2: There is disc bulge. The central canal is patent. There is mild narrowing of the left neural foramen. L2-3: There is disc bulge, eccentric to the left with facet arthrosis. There is mild to moderate narrowing of the central canal, lateral recesses and neural foramen. L3-4: The central canal is patent. There are facet arthrosis. The neural foramen are patent. L4-5: There is a left paracentral disc extrusion with superior subligamentous migration. A sequestered disc fragment may be present. There is moderate narrowing of the left lateral recess at this level. This is new since prior MRI. There is mild narrowing of both neural foramen. There is mild narrowing of the central canal. L5-S1: Central canal and neural foramen are patent. There is facet arthrosis. IMPRESSION: 1. Moderate-sized left paracentral disc extrusion at L4-L5 with suspected superior subligamentous migration. A sequestered disc fragment could appear similar. Resultant moderate narrowing of the left lateral recess at this level. 2. Mild to moderate central canal stenosis at L2-L3, as described above. Electronically signed by: Sam Ryan M.D. 01/20/2017 4:26 PM Dictated Date/Time: 01/20/2017 4:16 PM
== END | disposition home or self-care (01) ==
LOC: C.MRIBC 15:07
PROVIDERS: ATTEND Internal Medicine
DX: M54.41 Lumbago with sciatica, right side (principal); M54.42 Lumbago with sciatica, left side; M51.26 Other intervertebral disc displacement, lumbar region

== ENCOUNTER → 2017-08-11 | Outpatient (CLI) | payer OTHER, BC ==
[~2017-08-11] MED LIST changes: -HYDR-5688 PO; -OXYC-643 PO; +SENN1TAB80 PO; -SENN8.6T13 PO
== END | disposition home or self-care (01) ==
LOC: C.LABBC 11:26
PROVIDERS: ATTEND Anesthesiology
DX: E55.9 Vitamin D deficiency, unspecified (principal)

== ENCOUNTER → 2017-11-02 | Outpatient (CLI) | payer OTHER, BC ==
[~2017-11-02] MED LIST changes: +RANI150T85 PO; -ZNTT/150 PO
--- NOTE | 2017-11-03 07:39 | MAMMOGRAPHY REPORT ---
BILATERAL DIGITAL SCREENING MAMMOGRAM TOMOSYNTHESIS WITH CAD: 11/02/2017 CLINICAL HISTORY: Routine screening. TECHNIQUE: Breast tomosynthesis in addition to standard 2D mammography was performed. Current study was also evaluated with a Computer Aided Detection (CAD) system. COMPARISON: Comparison is made to exams dated: 05/13/2017 mammogram, 11/05/2016 mammogram, 10/24/2016 m ammogram, 10/22/2015 mammogram, 10/20/2014 mammogram, and 10/19/2013 mammogram - [facility]. BREAST COMPOSITION: There are scattered areas of fibroglandular density in both breasts. FINDINGS: There are scattered stable benign-appearing microcalcifications bilaterally. No suspicious mass, architectural distortion or cluster of suspicious microcalcifications is seen. IMPRESSION: ACR BI-RADS CATEGORY 1: NEGATIVE There is no mammographic evidence of malignancy. A 1 year screening mammogram is recommended. The pa tient will receive written notification of the results. Approximately 10% of breast cancers are not detected with mammography. A negative mammographic report should not delay biopsy if a clinically suggestive mass is present. Ying Gamez M.D. ay/:11/02/2017 13:41:51 Saw Sharpener: Shahnaz CASTELLANOS(Frankie)(M), [facility] letter sent: Normal 1/2 BI-RADS Code: ACR BI-RADS Category 1: Negative
== END | disposition home or self-care (01) ==
LOC: C.MAMM 12:54
PROVIDERS: ATTEND Internal Medicine
DX: Z12.31 Encounter for screening mammogram for malignant neoplasm of breast (principal)